=== PATIENT | female | born 1980 | race Caucasian/White ===

== ENCOUNTER 2020-07-16 20:25 | Emergency (ER) | payer MEDICAID ==
[~2020-07-16] VITALS: Ht 162.6 cm; Wt 75.0 kg
[2020-07-16 20:38] VITALS: BP 109/56
[2020-07-16] MEDS ORDERED: IBUPROFEN 600MG TABLET PO ONE (22:30)
[2020-07-16] MEDS ORDERED: ACETAMINOPHEN 325MG TABLET PO ONE (22:30)
== END 2020-07-16 23:03 | disposition home or self-care (01) ==
LOC: ER 20:43
DX: S39.012A Strain of muscle, fascia and tendon of lower back, initial encounter (principal); V49.49XA Driver injured in collision with other motor vehicles in traffic accident, initial encounter; Y93.89 Activity, other specified; Y92.488 Other paved roadways as the place of occurrence of the external cause
CPT/HCPCS: 99283